=== PATIENT | female | born 1990 | race Caucasian/White ===

== ENCOUNTER 2017-10-16 11:42 | Emergency (ER) | payer OTHER ==
[~2017-10-16] VITALS: Ht 160 cm; Wt 102.1 kg
== END 2017-10-16 18:07 | disposition home or self-care (01) ==
LOC: ER 11:42
DX: O26.892 Other specified pregnancy related conditions, second trimester (principal); K52.9 Noninfective gastroenteritis and colitis, unspecified; Z34.02 Encounter for supervision of normal first pregnancy, second trimester

== ENCOUNTER 2018-03-14 10:28 | Inpatient (IN) | payer OTHER ==
[~2018-03-14] VITALS: Ht 160 cm; Wt 108.9 kg
[2018-03-14] MEDS ORDERED: PRENATAL TABLE1 EACH PO (15:42)
[2018-03-14] MEDS ORDERED: PRENATAL TABLE1 EAC1 PO (15:43)
== END 2018-03-16 13:39 | DRG 806 ==
LOC: LDR 10:28 → OB/GYN 10:28 → LDR 17:46 → OB/GYN 21:33
PROC: 10E0XZZ Delivery of Products of Conception, External Approach (ICD-10-PCS; principal; 2018-03-14)
PROC: 0HQ9XZZ Repair Perineum Skin, External Approach (ICD-10-PCS; 2018-03-14)
PROC: 4A1HXCZ Monitoring of Products of Conception, Cardiac Rate, External Approach (ICD-10-PCS; 2018-03-14)
PROC: 3E033VJ Introduction of Other Hormone into Peripheral Vein, Percutaneous Approach (ICD-10-PCS; 2018-03-14)
DX: O70.0 First degree perineal laceration during delivery (principal); O41.03X0 Oligohydramnios, third trimester, not applicable or unspecified; Z37.0 Single live birth; Z3A.38 38 weeks gestation of pregnancy